=== PATIENT | female | born 1930 | race Caucasian/White ===

== ENCOUNTER → 2016-05-05 | Outpatient (CLI) | payer MEDICARE ==
[~2016-05-05] MED LIST: AC325T PO; AC500T PO; ACDPT PO; AMOX-355 PO; ASP325T PO; ASP81CT PO; ASP81TEC PO; BACL10TA PO; CARV12.52 PO; CARV6.252 PO; CHOL50003 PO; CLCX200C PO; CLOP75TA PO; DIPH25TA82 PO; DOCU100T7 PO; ENAL2.5T PO; ENXP40I.4 SC; ESTR0.5T PO; HDR2T PO; HYDR200T46 PO; ISM30TCR PO; LIDOCAINE 2% VISCOUS 15 ML UDC ONE; MEDR2.5T6 PO; MULT1CAP27 PO; NITR0.3T6 SL; NITR100C3 PO; NORE5TAB5 PO; OLME1TAB25 PO; OMEP20CA6 PO; OMG1KC PO; OXYB5SYR2 PO; PNT40TEC PO; PRAV80TA2 PO; SIMV40TA2 PO; SPIR25TA3 PO; TICA90TA PO; VNL37.5T PO; [UNRECOGNIZED DRUG - OTHER] PO; [UNRECOGNIZED DRUG - OTHER] PO
--- OUTSIDE RECORDS SUMMARY | 2016-05-05 08:46 | XMS REPORT | Continuity of Care Document ---
Author Author [facility] Organization [facility] Address Unknown Phone Unavailable Care Team Providers Care Machine Bender Name Role Phone Alf Clarke PCP [phone] Source Comments Some departments are not documenting in the electronic medical record. If you do not see the information that you expected, contact Release of Information in the Health Information Management department at [phone] for further assistance in locating additional records.[facility] Active Allergies and Adverse Reactions Allergen Noted Date Severity Reactions Comments Codeine 10/01/2010 NAUSEA AND VOMITING Tolerates hydromorphone and oxycodone Demerol (Pf) 10/01/2010 NAUSEA AND VOMITING Fentanyl Citrate (Pf) 10/01/2010 NAUSEA AND VOMITING Morphine 10/01/2010 NAUSEA AND VOMITING Current Medications Prescription Sig. Disp. Refills Start End Date Status Date diphenhydrAMINE Take 25 mg by mouth at Active (BENADRYL) 25 mg PO bedtime as needed. capsule docusate (COLACE) 100 mg Take 200 mg by mouth Active PO capsule twice daily as needed. carvedilol (COREG) 6.25 Take 1 Tab by mouth twice 180 Tab 3 10/10/19 Active mg PO tablet daily with meals. Hold 11 for SBP <100. simvastatin (ZOCOR) 40 mg Take 1 Tab by mouth at 10/10/19 Active PO tablet bedtime daily. 11 cyclobenzaprine Take 0.5 Tabs by mouth 60 Tab 10/10/19 Active (FLEXERIL) 10 mg PO three times daily as 11 tablet needed. celecoxib (CELEBREX) 200 Take 200 mg by mouth Active mg capsule twice daily. aspirin EC 81 mg tablet Take 81 mg by mouth Active daily. isosorbide mononitrate SR Take 30 mg by mouth every Active (IMDUR) 30 mg tablet morning. nitroglycerin (NITROSTAT) Place 0.4 mg under tongue Active 0.4 mg tablet every 5 minutes as needed. fish oil /omega-3 fatty Take 1 Cap by mouth three Active acids (SEA-OMEGA) times daily. 340/1000 mg capsule hydroxychloroquine Take 200 mg by mouth Active (PLAQUENIL) 200 mg tablet twice daily. enalapril (VASOTEC) 2.5 Take 5 mg by mouth twice Active mg tablet daily. pantoprazole DR Take 40 mg by mouth Active (PROTONIX) 40 mg tablet daily. ticagrelor (BRILINTA) 90 Take 90 mg by mouth twice Active mg daily. vitamins, multiple Cap Take 1 Cap by mouth Active daily. cholecalciferol (Vitamin Take 1,000 Units by mouth Active D3) (VITAMIN D-3) 1,000 daily. units tablet acetaminophen (TYLENOL) Take 500 mg by mouth Active 500 mg tablet every 6 hours as needed. oxyCODONE (ROXICODONE) 5 Take 1-2 Tabs by mouth 30 Tab 0 12/14/19 Active mg tablet every 4 hours as needed 12 for Pain. enoxaparin (LOVENOX) 40 Inject 0.4 mL into 28 Syringe 0 12/14/19 Active mg injection syringe area(s) as directed 12 daily. venlafaxine XR (EFFEXOR Take 1 Cap by mouth 30 Cap 6 01/25/20 Active XR) 37.5 mg capsule daily. 12 Active Problems Problem Noted Date Endometrial cancer (HCC) 12/14/2011 Chronic systolic congestive heart failure (HCC) 10/08/2010 Recent myocardial infarction 10/08/2010 Personal history of CABG (coronary artery bypass graft) 10/08/2010 Hyponatremia 10/07/2010 Necrosis (HCC) 10/05/2010 Crush injury 10/05/2010 Immunizations Name Dates Previously Given Next Due Tdap Vaccine 10/02/2010 Social History Tobacco Use Types Packs/Day Years Used Date Never Smoker Smokeless Tobacco: Never Used Alcohol Use Drinks/Week oz/Week Comments No Last Filed Vital Signs Vital Sign Reading Time Taken Blood Pressure 151/85 08/08/2012 2:53 PM CDT Pulse 90 08/08/2012 2:53 PM CDT Temperature 36.9 C (98.4 F) 08/08/2012 2:53 PM CDT Respiratory Rate - - Height 1.549 m (5' 1") 08/08/2012 2:53 PM CDT Weight 62.687 kg (138 lb 3.2 oz) 08/08/2012 2:53 PM CDT Body Mass Index 26.13 08/08/2012 2:53 PM CDT Oxygen Saturation 98% 12/28/2011 1:00 PM CDT Plan of Care Health Maintenance Due Date Last Done Comments Physical (Comprehensive) 1937 Exam Shingles Vaccine 1991 Osteoporosis Screening 1996 Prevnar/Pneumovax (#1) 1996 Influenza Vaccine 12/25/2015 Tetanus Vaccine 10/02/2020 10/02/2010 Pertussis Vaccine Completed 10/02/2010 Results from Last 3 Months Not on file
--- NOTE | 2016-05-06 07:49 | ECHOCARDIOGRAPHY REPORT ---
PROCEDURE PHYSICIAN: CORY GILES DATE OF PROCEDURE: 05/05/2016 TWO DIMENSIONAL ECHOCARDIOGRAM REPORT PRIMARY PHYSICIAN: OTHER PHYSICIAN: REFERRING PHYSICIAN: Dr. Alf Clarke ORDERING PHYSICIAN: INDICATION FOR THE PROCEDURE: MEASUREMENTS DERIVED VALUES LV DIAMETER (LAX) NORMALS NORMALS Diastolic 4.3 (3.6-5.2) Eject. Fract. 40% (60%+/-6%) Systolic (2.3-3.9) Diastolic Vol. % Shortening (0.22-0.42) Systolic Vol. Aortic Root IVS THICKNESS Diastolic 1.1 (0.6-1.1) LVPW THICKNESS Diastolic 1.1 (0.6-1.1) LA DIAMETER Systolic 4.7 (2.1-3.7) FINDINGS: 1. Technically difficult study. 2. The left ventricle is slightly prominent with mild left ventricular hypertrophy. Endocardium was not well visualized in all segments. Hypokinesia was noticeable in the anterior wall and anterior septum with reduction in systolic function. Estimated ejection fraction 40%. 3. The left atrium is dilated. No clot or thrombus were seen within the left atrium. 4. The right atrium and right ventricle are prominent. No clot or thrombus were seen within the right side. 5. Mitral valve evaluation showed myxomatous degeneration of the mitral leaflet with moderate mitral regurgitation noted by color Doppler flow. No mitral valve prolapse. No mitral valve stenosis. 6. Aortic valve is heavily calcified. There is no significant aortic valve stenosis noted, moderate aortic regurgitation noted by color Doppler flow. 7. Tricuspid valve is normal in morphology with mild tricuspid regurgitation noted by color Doppler flow. Doppler across tricuspid valve estimated pulmonary artery pressure of 34+ right atrial pressure. 8. Pulmonic valve is functioning normally. 9. No pericardial effusion. IN CONCLUSION: 1. Mild left ventricular hypertrophy. Endocardium was not well visualized in all segments. Hypokinesia was noted involving the anterior wall and anterior septum. Systolic function is reduced. Estimated ejection fraction 40%. 2. Left atrial dilatation with prominent right heart chambers. 3. Heavily calcified aortic valve with no significant aortic stenosis, moderate aortic regurgitation. 4. 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 5. Estimated pulmonary artery pressure of 40 to 45 mmHg. Job ID: [id number] Dictated Date: 05/05/2016 15:39:41 Cut Plug Packer Date: 05/06/2016 07:45:23 / ladarius
== END ==
LOC: CARD 08:43
PROVIDERS: ATTEND Internal Medicine Cardiovascular Disease
DX: I25.10 Atherosclerotic heart disease of native coronary artery without angina pectoris (principal); I65.23 Occlusion and stenosis of bilateral carotid arteries; I10 Essential (primary) hypertension; I21.3 ST elevation (STEMI) myocardial infarction of unspecified site; E78.2 Mixed hyperlipidemia
CPT/HCPCS: 93306

== ENCOUNTER → 2016-05-19 | Outpatient (CLI) | payer MEDICARE ==
[~2016-05-19] VITALS: Ht 154.9 cm; Wt 63.0 kg
[~2016-05-19] MED LIST changes: +CATHETER FLUSH 10 ML SYR IV PRN; -LIDOCAINE 2% VISCOUS 15 ML UDC ONE; +REGADENOSON 0.4 MG/5 ML SYR (LEXISCAN) IV ONE
--- OUTSIDE RECORDS SUMMARY | 2016-05-19 07:43 | XMS REPORT | Continuity of Care Document ---
Author Author [facility] Organization [facility] Address Unknown Phone Unavailable Care Team Providers Care Iridologist Name Role Phone Alf Clarke PCP [phone] Source Comments Some departments are not documenting in the electronic medical record. If you do not see the information that you expected, contact Release of Information in the Health Information Management department at [phone] for further assistance in locating additional records.[facility] Active Allergies and Adverse Reactions Allergen Noted [...]
[2016-05-19 09:19] VITALS: BP 146/60
--- NOTE | 2016-05-20 08:02 | STRESS TEST ---
PROCEDURE PHYSICIAN: CORY GILES DATE OF PROCEDURE: 05/19/2016 LEXISCAN MYOVIEW STRESS TEST REPORT: REFERRING PHYSICIAN: Dr. Alf lCarke BASELINE HEART RATE: 65 BASELINE BLOOD PRESSURE: 139/62 BASELINE EKG: Sinus rhythm with no ischemic changes. IN SUMMARY: The patient was injected with 10.44 mCi of technetium 99 Myoview and the resting images were obtained. Then the patient received 0.4 mg of Lexiscan followed by 30.5 mCi of technetium 99 Myoview. Throughout the test, there were no EKG changes. The resting and stress images were reviewed and compared in the short axis, horizontal long axis, and vertical long axis views. Review of the images showed breast attenuation. There is reversible ischemia involving the basal to mid anterior wall and anterior septum. SSS is 8, SDS 7, TID value 0.92. On the gated images, the left ventricle appeared to be prominent with diffuse left ventricular hypokinesia. Calculated ejection fraction 33%. IN CONCLUSION: 1. The patient tolerated Lexiscan well. 2. Breast attenuation with mild ischemia involving the basal to mid anterior wall and anterior septum. 3. Slightly prominent left ventricle with diffuse left ventricular hypokinesia. Calculated ejection fraction 33%. Job ID: [id number] Dictated Date: 05/19/2016 18:58:33 Customer Service Professional Date: 05/20/2016 07:55:22 / ladarius
== END ==
LOC: CARD 07:39
PROVIDERS: ATTEND Internal Medicine Cardiovascular Disease
DX: I25.10 Atherosclerotic heart disease of native coronary artery without angina pectoris (principal); I65.23 Occlusion and stenosis of bilateral carotid arteries; I10 Essential (primary) hypertension; I21.3 ST elevation (STEMI) myocardial infarction of unspecified site; E78.2 Mixed hyperlipidemia
CPT/HCPCS: 78452; 93017

== ENCOUNTER 2016-12-01 07:26 | Day surgery (SDC) | payer MEDICARE ==
[2016-12-01] VITALS (11 sets, daily range): BP systolic 135–178; BP diastolic 62–77
[~2016-12-01] VITALS: Ht 154.9 cm; Wt 59.0 kg
[~2016-12-01 07:26] MED LIST changes: -CATHETER FLUSH 10 ML SYR IV PRN; +HEParin (CATH LAB) 2,000 ML IV ONE; +NS IV 1000 ML 1,000 ML ONE; -REGADENOSON 0.4 MG/5 ML SYR (LEXISCAN) IV ONE
[2016-12-01] MEDS ORDERED: NS IV 1000 ML 1,000 ML IV SCH ×2 (07:29→10:42)
--- OUTSIDE RECORDS SUMMARY | 2016-12-01 07:29 | XMS REPORT | Clinical Summary ---
Author Author [facility] Organization [facility] Address Unknown Phone Unavailable Care Team Providers Care Finance Specialist Name Role Phone PCP Unavailable Source Comments Some departments are not documenting in the electronic medical record. If you do not see the information that you expected, contact Release of Information in the Health Information Management department at [phone] for further assistance in locating additional records.[facility] Allergies Active Allergy Reactions Severity Noted Date Comments Codeine NAUSEA AND VOMITING 10/01/2010 Tolerates hydromorphone and oxycodone Meperidine (Pf) NAUSEA AND VOMITING 10/01/2010 Fentanyl Citrate (Pf) NAUSEA AND VOMITING 10/01/2010 Morphine NAUSEA AND VOMITING 10/01/2010 Current Medications Prescription Sig. Disp. Refills Start [...] Cap 6 01/25/20 Active XR) 37.5 mg daily. 12 capsuleIndications: Endometrial cancer (HCC) Active Problems Problem Noted Date Endometrial cancer [...] Used Alcohol Use Drinks/Week oz/Week Comments No Sex Assigned at Date Recorded Not on file Last Filed Vital Signs Vital Sign Reading Time Taken Blood Pressure 151/85 08/08/2012 2:53 PM CDT Pulse 90 08/08/2012 2:53 PM CDT Temperature 36.9 C (98.4 F) 08/08/2012 2:53 PM CDT Respiratory Rate - - Oxygen Saturation 98% 12/28/2011 1:00 PM CDT Inhaled Oxygen - - Concentration Weight 62.7 kg (138 lb 3.2 oz) 08/08/2012 2:53 PM CDT Height 154.9 cm (5' 1") 08/08/2012 2:53 PM CDT Body Mass Index 26.11 08/08/2012 2:53 PM CDT Plan of Treatment Health Maintenance Due Date Last Done Comments PHYSICAL (COMPREHENSIVE) 1937 EXAM SHINGLES VACCINE 1991 OSTEOPOROSIS SCREENING 1996 PREVNAR/PNEUMOVAX (#1) 1996 INFLUENZA VACCINE 12/24/2016 TETANUS VACCINE 10/02/2020 10/02/2010 PERTUSSIS VACCINE Completed 10/02/2010 Results Not on filefrom Last 3 Months
[2016-12-01 08:15] LABS: MEAN PLATELET VOLUME 10.1 FL (7.4-10.4); RED BLOOD COUNT 4.46 10^6/uL (4.35-5.85); RED CELL DISTRIBUTION WIDTH 14.7 % (10.0-14.5); WHITE BLOOD COUNT 8.9 10^3/uL (4.3-11.0)
[2016-12-01 08:17] LABS: BILIRUBIN,URINE NEGATIVE (NEGATIVE); KETONES,URINE NEGATIVE (NEGATIVE); LEUKOCYTE ESTERASE ,URINE 1+ (NEGATIVE); NITRITE,URINE NEGATIVE (NEGATIVE); PH,URINE 7 (5-9); PROTEIN,URINE 2+ (NEGATIVE); UROBILINOGEN,URINE NORMAL (NORMAL)
--- NOTE | 2016-12-01 08:18 | Diagnostic Imaging Report ---
Portable upright radiograph of the chest. INDICATION: Abnormal stress test. FINDINGS: The lungs are hyperinflated with minimal pulmonary vascular congestion. The heart size is enlarged. No effusion or pneumothorax. The mediastinum and vahe appear unremarkable. Sternotomy wires and post-kyphoplasty change in the lower thoracic spine seen. IMPRESSION: Cardiomegaly with minimal vascular congestion. Dictated by: Dictated on workstation # [id number]
--- NOTE | 2016-12-01 08:22 | Cardiac Procedure Note-CS/ASA ---
Pre-Procedure Note Pre-Op Procedure Note H&P Reviewed The H&P was reviewed, patient examined and no changes noted. Date H&P Reviewed: Dec 01, 2016 Time H&P Reviewed: 08:22 Conscious Sedation Pre-Proced Time Reviewed: 08:22 ASA Class: 3 Airway Mallampati Classification: (marshall appropriate class) I. II. III, IV Lungs Heart ASA score ASA 1: a normal healthy patient ASA 2: a patient with a mild systemic disease (mid diabetes, controlled hypertension, obesity x ASA 3: a patient with a severe systemic disease that limits activity (angina , COPD, prior Myocardial infarction) ASA 4: a patient with an incapacitating disease that is a constant threat to life (CHF, renal failure) ASA 5: a moribund patient not expected to survive 24 hrs. (ruptured aneurysm) ASA 6: a declared brain patient whose organs are being harvested. For emergent operations, add the letter E after the classification Grade 3 Sedation Plan: Analgesia, Amnesia, Plan communicated to team members, Discussed options with patient/fam, Discussed risks with patient/fam Note The patient is an appropriate candidate to undergo the planned procedure, sedation, and anesthesia. The patient immediately re-assessed prior to indication. CORY GILES MD Dec 01, 2016 08:22
[2016-12-01] MEDS ORDERED: NITR0.4T SL (08:23)
[2016-12-01] MEDS ORDERED: VIT1CAPS44 PO (08:23)
[2016-12-01] MEDS ORDERED: OMEP40CA36 PO (08:23)
[2016-12-01] MEDS ORDERED: FURO40TA4 PO (08:23)
[2016-12-01] MEDS ORDERED: MULT-1021 PO (08:23)
[2016-12-01] MEDS ORDERED: ENAL5TAB PO (08:23)
[2016-12-01] MEDS ORDERED: NAPR220T66 PO (08:23)
[2016-12-01] MEDS ORDERED: MELO15TA39 PO (08:23)
[2016-12-01] MEDS ORDERED: CEFU250T80 PO (08:23)
[2016-12-01] MEDS ORDERED: CHOL10007 PO (08:23)
[2016-12-01 08:24] LABS: INR 1.1 (0.8-1.4); PROTHROMBIN TIME PATIENT 14.2 SEC (12.2-14.7)
[2016-12-01 08:25] LABS: WBC,URINE RARE /HPF
[2016-12-01] MEDS ORDERED: fentaNYL INJECTION 100 MCG/2 ML AMP ONE (08:33)
[2016-12-01] MEDS ORDERED: MIDAZOLAM 5 MG/5 ML (VERSED) VIAL ONE (08:34)
[2016-12-01 08:35] LABS: ALBUMIN 3.8 GM/DL (3.2-4.5); BILIRUBIN,TOTAL 0.4 MG/DL (0.1-1.0); CALCIUM 9.9 MG/DL (8.5-10.1); CREATININE SERUM 0.91 MG/DL (0.60-1.30); POTASSIUM 4.3 MMOL/L (3.6-5.0); TOTAL PROTEIN 7.1 GM/DL (6.4-8.2)
--- NOTE | 2016-12-01 10:44 | Discharge Inst-Post CATH ---
Discharge Inst-CATH Post Cardiac Cath D/C Inst Follow Up/Plan Appointment with Dr. Hess's office in 2-4 weeks CARDIAC CATH DISCHARGE INSTRUCTIONS *Hold Metformin for 48 hours post heart cath. ACTIVITY * Go Home directly and rest. * Limit activity of the leg (or wrist if it was used) for 7 days including aerobics, swimming, jogging, bicycling, etc. * Restrict stair-climbing for 7 days if possible, if not, climb up with your non -cath leg, then bring together on the same step. * Avoid lifting, pushing, pulling or excessive movement of the affected extremity for 7 days. * Customary sexual activity may be resumed after 2 days-use caution not to use a position that strains or causes pain to the affected extremity. * No driving for 24 hours. * NO SMOKING. * Avoid straining for bowel movements for 7 days. * Gentle walking on level ground is allowed. * Returning to work will depend on the type of procedure and the results. Your doctor will discuss this with you. CALL YOUR DOCTOR FOR ANY OF THE FOLLOWING: *If bleeding from the puncture site occurs- Apply gentle pressure to site with clean cloth and call your doctor or EMS. * If a knot or lump forms under the skin, increases in size, or causes pain. * If bruising appears to be worsening or moving further down your leg instead of disappearing. * Temperature above 101 F. CARE OF YOUR GROIN INCISION; * Bruising or purple discoloration of the skin near the puncture site is common. * You may shower only, no bathtub bathing for 5 days. Be careful to avoid slipping as your leg may feel stiff. * If a closure device was used on your femoral artery, please see the attached guide regarding care of the device and your leg. * REMOVE the dressing from your groin the next day after your procedure in the shower. CARE OF YOUR WRIST INCISION; * Bruising or purple discoloration of the skin near the puncture site is common. * You may shower. * DO NOT submerge wrist. * Remove dressing in 24 hours. CORY HESS MD Dec 01, 2016 10:44
[2016-12-01] MEDS ORDERED: PATIENT MAY USE OWN MEDS, ALL PO SCH (10:45)
--- NOTE | 2016-12-01 10:50 | Cardiac Cath Report ---
Cardiac Cath Report Physician (s)/Inspector Missile (s) Physician CORY GILES MD Pre-Procedure Diagnosis Pre-Procedure Diagnosis: coronary artery disease Post-Procedure Note Procedure Start Date: Dec 01, 2016 Procedure Start Time: 10:30 Name of Procedure: left heart catheterization, vein graft angiogram, HAMILTON angiogram Findings/Procedure Note PROCEDURE NOTE: After explaining the procedure to the patient, all pros and cons were explained, all questions were answered. The patient signed the consent and then she was placed on the cardiac catheterization laboratory. PROCEDURE NOTE: The patient was placed on the cardiac catheterization laboratory. Groin was prepped SL fashion local anesthesia was used. Sheath placed in the artery. Branden right and left catheter were used to access the coronary system. Vein Grafts evaluated. HAMILTON evaluated. Branden right was advanced to the left ventricular cavity, pressure was measured At the end of the procedure the sheath was removed. Closure device Mynx used. FINDINGS: Hemodynamics LV [ 168/19, end-diastolic pressure of 19] Aorta [ 174/60 mean of 101] ANATOMY: Left Main 70 percent ostial left main stenosis that is filling the diagonal artery. Left Anterior Descending is occluded at the midportion after the origin of a moderate size diagonal artery, the HAMILTON to the mid LAD is patent with good flow distally, diagonal artery has moderate disease Left Circumflex totally occluded, known to be occluded, occluded vein graft to the circumflex system Right Coronory Artery occluded artery with patent vein graft to the right coronary artery HAMILTON patent with good flow in the LAD Vein graft to the circumflex artery is occluded Vein graft to the right coronary artery is patent with good flow distally CONCLUSION: occluded vein graft to the circumflex artery with occluded iqugmiut circumflex artery, no collaterals were noted. Occluded mid LAD with patent HAMILTON to the mid LAD filling the LAD distally with good flow First diagonal artery is moderate in size with moderate disease Left main has 70 percent ostial stenosis Occluded right coronary artery with patent vein graft to the right coronary system No significant change compared to the previous study, small vessel disease. DISCUSSION AND RECOMMENDATION: Medical therapy is recommended Anesthesia Type: Conscious Sedation Estimated blood loss (mL): 25 ml Contrast Amount: 67 ml Total Radiation Dose: 203 mGy Post-Procedure Diagnosis Post-operative diagnosis: Coronary artery disease Hypertension Hyperlipidemia CORY GILES MD Dec 01, 2016 10:50
--- NOTE | 2016-12-01 10:52 | Clinic Account Progress/Dx ---
Clinic Account Progress/Dx DIAGNOSIS: Date Seen by Provider: Dec 01, 2016 Time Seen by Provider: 10:52 Diagnosis Coronary artery disease Hypertension Hyperlipidemia CORY GILES MD Dec 01, 2016 10:52
== END 2016-12-01 15:15 | disposition home or self-care (01) ==
LOC: CATH 07:26 → SURG 11:04 → CATH 15:15
PROVIDERS: ATTEND Internal Medicine Cardiovascular Disease
DX: I25.10 Atherosclerotic heart disease of native coronary artery without angina pectoris (principal); I25.82 Chronic total occlusion of coronary artery; T82.857D Stenosis of other cardiac prosthetic devices, implants and grafts, subsequent encounter; E78.2 Mixed hyperlipidemia; I11.0 Hypertensive heart disease with heart failure; Z79.899 Other long term (current) drug therapy
CPT/HCPCS: 36415; 71010; 80053; 81000; 85027; 85610; 85730; 87081; 93005; 93459

== ENCOUNTER 2017-04-02 10:16 | Emergency (ER) | payer MEDICARE ==
[~2017-04-02] VITALS: Ht 160 cm; Wt 63.5 kg
[~2017-04-02 10:16] MED LIST changes: +CEFU250T80 PO; +CHOL10007 PO; +ENAL5TAB PO; +FURO40TA4 PO; -HEParin (CATH LAB) 2,000 ML IV ONE; +MELO15TA39 PO; +MULT-1021 PO; +NAPR220T66 PO; +NITR0.4T SL; -NS IV 1000 ML 1,000 ML ONE; +OMEP40CA36 PO; +VIT1CAPS44 PO
--- NOTE | 2017-04-02 11:32 | Diagnostic Imaging Report ---
EXAM: CHEST 1 VIEW, AP/PA ONLY INDICATION: Fall. Chest pain. COMPARISON: Chest radiograph 12/01/2016. FINDINGS: Cardiomegaly and pulmonary venous congestion, similar to the prior exam. Sternotomy with mediastinal clips and markers. No new focal pulmonary opacity, pleural effusion or pneumothorax. Osseous structures appear intact. Postoperative findings in the right shoulder. Vertebroplasty of a lower thoracic vertebral body. Cholecystectomy clips. IMPRESSION: Cardiomegaly with mild pulmonary venous congestion is stable. No acute cardiopulmonary findings. Dictated by: Dictated on workstation # [id number]
--- NOTE | 2017-04-02 11:35 | Diagnostic Imaging Report ---
EXAM: RIBS, LEFT 2-3 VIEWS INDICATION: Fall. Chest pain. COMPARISON: Chest radiograph also performed today. FINDINGS: Mild angulation of the distal left seventh rib may represent an age-indeterminate fracture. No other findings suspicious for a left rib fracture. Vertebroplasty changes within the L1 compression fracture. Cardiomegaly. Sternotomy with mediastinal clips and markers. Degenerative changes in the left shoulder. IMPRESSION: Mild angulation of the distal left seventh rib may represent age-indeterminate fracture. No other findings suspicious for left rib fracture. Dictated by: Dictated on workstation # [id number]
--- NOTE | 2017-04-02 11:35 | Diagnostic Imaging Report ---
EXAM: PELVIS WITH LEFT HIP 2-3 VIEWS INDICATION: Fall. Left hip pain. COMPARISON: None FINDINGS: Moderately angulated and foreshortened left subcapital hip fracture. No other acute fractures are identified. Moderate degenerative changes in the right hip and both SI joints. Chronic appearing fracture deformities of the right superior and inferior pubic rami. IMPRESSION: Moderately angulated and foreshortened left subcapital hip fracture. Dictated by: Dictated on workstation # [id number]
[2017-04-02 11:53] LABS: BASOPHILS % (AUTO) 0 % (0-10); EOSINOPHILS # (AUTO) 0.1 10^3/uL (0.0-0.3); EOSINOPHILS % (AUTO) 1 % (0-10); LYMPHOCYTES # (AUTO) 0.6 X 10^3 (1.0-4.0); LYMPHOCYTES % (AUTO) 6 % (12-44); MEAN CORPUSCULAR HEMOGLOBIN 29 PG (25-34); MEAN CORPUSCULAR HGB CONC 32 G/DL (32-36); MEAN CORPUSCULAR VOLUME 92 FL (80-99); MONOCYTES # (AUTO) 0.6 X 10^3 (0.0-1.0); MONOCYTES % (AUTO) 6 % (0-12); NEUTROPHILS # (AUTO) 9.3 X 10^3 (1.8-7.8); NEUTROPHILS % (AUTO) 88 % (42-75); PLATELET COUNT 225 10^3/uL (130-400); RED BLOOD COUNT 3.81 10^6/uL (4.35-5.85); RED CELL DISTRIBUTION WIDTH 15.6 % (10.0-14.5); WHITE BLOOD COUNT 10.6 10^3/uL (4.3-11.0)
[2017-04-02 11:59] LABS: INR 1.2 (0.8-1.4); PROTHROMBIN TIME PATIENT 15.1 SEC (12.2-14.7)
[2017-04-02 12:09] LABS: ALBUMIN 3.6 GM/DL (3.2-4.5); BILIRUBIN,TOTAL 0.3 MG/DL (0.1-1.0); CALCIUM 9.1 MG/DL (8.5-10.1); CREATININE SERUM 0.96 MG/DL (0.60-1.30); POTASSIUM 4.6 MMOL/L (3.6-5.0); TOTAL PROTEIN 6.5 GM/DL (6.4-8.2)
[2017-04-02 12:13] LABS: BAND NEUTROPHILS 0 %; BASOPHILS % (MANUAL) 0 %; EOSINOPHILS % (MANUAL) 1 %; LYMPHOCYTES % (MANUAL) 12 %; NEUTROPHILS % (MANUAL) 81 %
--- NOTE | 2017-04-02 13:06 | ED Fall/Injury ---
General Chief Complaint: Hip/Pelvic Problems Stated Complaint: FALL/L HIP INJ Source: patient, EMS Exam Limitations: no limitations History of Present Illness Time seen by provider: 10:50 Initial Comments This delightful 86-year-old woman presents to the emergency room with complaint of left hip pain after having a fall walking on her front door. She is not exactly sure what caused the fall but she denies any prodrome. She has pain on the left lateral chest wall and primarily in the left hip. She was unable to bear weight and arrives via EMS. She denies any injury to the head or neck or pain in those areas. Allergies and Home Medications Allergies Coded Allergies: codeine (Verified Allergy, Unknown, 12/01/16) meperidine HCl (Verified Allergy, Unknown, 12/01/16) morphine (Verified Allergy, Unknown, 12/01/16) Home Medications Aspirin 81 Mg Tabec, 81 MG PO DAILY, (Reported) Carvedilol 6.25 Mg Tablet, 6.25 MG PO BID, (Reported) Cefuroxime Axetil 250 Mg Tablet, 250 MG PO BID for 10 Days, (Reported) 10 DAY SUPPLY FILLED 11-22-16 Cholecalciferol (Vitamin D3) 1,000 Unit Capsule, 1,000 UNIT PO HS, (Reported) Diphenhydramine Hcl 25 Mg Tablet, 25 MG PO HS, (Reported) Enalapril Maleate 5 Mg Tablet, 5 MG PO BID, (Reported) Furosemide 40 Mg Tablet, 40 MG PO DAILY, (Reported) Hydroxychloroquine Sulfate 200 Mg Tab, 200 MG PO BID, (Reported) Isosorbide Mononitrate 30 Mg Tab, 30 MG PO DAILY, (Reported) Meloxicam 15 Mg Tablet, 15 MG PO DAILY, (Reported) Multivits-Min/Iron/FA/Lutein 1 Each Tablet, 1 TAB PO DAILY, (Reported) Naproxen Sodium 220 Mg Tablet, 220 MG PO BID, (Reported) Nitroglycerin 0.4 Mg Tab.subl, 0.4 MG SL UD PRN for CHEST PAIN, (Reported) [place] 3 Polyunsat Fatty Acids 1,000 Mg Cap, 1,000 MG PO BID, (Reported) Omeprazole 40 Mg Capsule.dr, 40 MG PO BID, (Reported) Simvastatin 40 Mg Tablet, 40 MG PO DAILY, (Reported) Vit C/E/Zn/Coppr/Lutein/Zeaxan 1 Each Capsule, 1 CAP PO BID, (Reported) Constitutional: no symptoms reported Eyes: No Symptoms Reported Ears, Nose, Mouth, Throat: no symptoms reported Respiratory: no symptoms reported Cardiovascular: no symptoms reported Gastrointestinal: no symptoms reported Genitourinary: no symptoms reported : No Musculoskeletal: see HPI Skin: no symptoms reported Psychiatric/Neurological: No Symptoms Reported Past Mblblsk-Pyhcql-Clfrot Hx Patient Social History Recent Foreign Travel: No Contact w/Someone Who Travel: No Recent Infectious Disease Expo: No Recent Hopitalizations: Yes (2009 BACK SURGERY) Immunizations Up To Date Date of Pneumonia Vaccine: Jan 24, 2012 Date of Influenza Vaccine: Jan 24, 2013 Seasonal Allergies Seasonal Allergies: No Surgeries History of Surgeries: Yes Surgeries: Amputation, CABG, 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, BKA) Respiratory History of Respiratory Disorde: No Cardiovascular History of Cardiac Disorders: Yes (CABG, STENT) Cardiac Disorders: Coronary Artery Disease Neurological History of Neurological Disord: No Reproductive System Hx Reproductive Disorders: Yes (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) Sexually Transmitted Disease: No HIV/AIDS: No Female Reproductive Disorders: Denies Genitourinary History of Genitourinary Disor: No Gastrointestinal History of Gastrointestinal Di: Yes Gastrointestinal Disorders: Gastroesophageal Reflux Musculoskeletal 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 Endocrine History of Endocrine Disorders: No HEENT History of HEENT Disorders: No Cancer History of Cancer: Yes Cancer: Uterine Psychosocial History of Psychiatric Problem: No Integumentary History of Skin or Integumenta: No Blood Transfusions History of Blood Disorders: No Adverse Reaction to a Blood Tr: No Physical Exam Vital Signs Vital Sign - Last 12Hours 04/02/17 10:25 Temp 98.2 Pulse 68 Resp 20 B/P (MAP) 138/98 (111) Capillary Refill : NONE General Appearance: WD/WN, no apparent distress HEENT: PERRL/EOMI, normal ENT inspection Neck: normal inspection Cardiovascular: regular rate, rhythm, no edema, no murmur Respiratory: lungs clear, normal breath sounds, no respiratory distress, no accessory muscle use, other (left lower lateral chest tender to palpation) Gastrointestinal: normal bowel sounds, non tender, soft Extremities: pelvis stable, other (tenderness over the left lateral hip. Pain with external rotation of the left leg. Prosthetic below the left knee) Neurologic/Psychiatric: vegetable scullion II-XII nml as tested, no motor/sensory deficits, alert, normal mood/affect, oriented x 3 Skin: normal color, warm/dry [place]ello Coma Score Best Eye Response: (4) Open Spontaneously Best Verbal Response: (5) Oriented Best Motor Response: (6) Obeys Commands [place] Total: 15 Progress/Results/Core Measures Results/Orders Lab Results Laboratory Tests Test 04/02/17 11:40 Range/Units White Blood Count 10.6 4.3-11.0 10^3/uL Red Blood Count 3.81 L 4.35-5.85 10^6/uL Hemoglobin 11.1 L 11.5-16.0 G/DL Hematocrit 35 35-52 % Mean Corpuscular Volume 92 80-99 FL Mean Corpuscular Hemoglobin 29 25-34 PG Mean Corpuscular Hemoglobin Concent 32 32-36 G/DL Red Cell Distribution Width 15.6 H 10.0-14.5 % Platelet Count 225 130-400 10^3/uL Mean Platelet Volume 10.0 7.4-10.4 FL Neutrophils (%) (Auto) 88 H 42-75 % Lymphocytes (%) (Auto) 6 L 12-44 % Monocytes (%) (Auto) 6 0-12 % Eosinophils (%) (Auto) 1 0-10 % Basophils (%) (Auto) 0 0-10 % Neutrophils # (Auto) 9.3 H 1.8-7.8 X 10^3 Lymphocytes # (Auto) 0.6 L 1.0-4.0 X 10^3 Monocytes # (Auto) 0.6 0.0-1.0 X 10^3 Eosinophils # (Auto) 0.1 0.0-0.3 10^3/uL Basophils # (Auto) 0.0 0.0-0.1 10^3/uL Neutrophils % (Manual) 81 % Lymphocytes % (Manual) 12 % Monocytes % (Manual) 6 % Eosinophils % (Manual) 1 % Basophils % (Manual) 0 % Band Neutrophils 0 % Blood Morphology Comment NORMAL Prothrombin Time 15.1 H 12.2-14.7 SEC INR Comment 1.2 0.8-1.4 Activated Partial Thromboplast Time 30 24-35 SEC Sodium Level 133 L 135-145 MMOL/L Potassium Level 4.6 3.6-5.0 MMOL/L Chloride Level 101 98-107 MMOL/L Carbon Dioxide Level 21 21-32 MMOL/L Anion Gap 11 5-14 MMOL/L Blood Urea Nitrogen 21 H 7-18 MG/DL Creatinine 0.96 0.60-1.30 MG/DL Estimat Glomerular Filtration Rate 55 BUN/Creatinine Ratio 22 Glucose Level 129 H 70-105 MG/DL Calcium Level 9.1 8.5-10.1 MG/DL Total Bilirubin 0.3 0.1-1.0 MG/DL Aspartate Amino Transf (AST/SGOT) 25 5-34 U/L Alanine Aminotransferase (ALT/SGPT) 28 0-55 U/L Alkaline Phosphatase 118 40-136 U/L Total Protein 6.5 6.4-8.2 GM/DL Albumin 3.6 3.2-4.5 GM/DL My Orders Orders - KINJAL EL MD Chest 1 View, Ap/Pa Only (04/02/17 10:59) Ribs, Left 2-3 Views (04/02/17 10:59) Pelvis With Left Hip 2-3 Views (04/02/17 10:59) Cbc With Automated Diff (04/02/17 11:47) Comprehensive Metabolic Panel (04/02/17 11:47) Protime With Inr (04/02/17 11:47) Partial Thromboplastin Time (04/02/17 11:47) Ua Culture If Indicated (04/02/17 11:47) Manual Differential (04/02/17 11:40) Vital Signs/I&O Vital Sign - Last 12Hours 04/02/17 10:25 Temp 98.2 Pulse 68 Resp 20 B/P (MAP) 138/98 (111) Blood Pressure Mean: 111 Progress Note #1: Progress Note Patient was seen and evaluated for left lateral chest pain and left hip pain. She was found to have a left seventh rib fracture of unknown chronicity. There was also a femoral neck fracture on the left. Patient expressed a strong preference to be transferred to [place] where her specialty care teams are located. She declined any pain medications. She did have some mild hypoxia during her ER stay and was started on nasal cannula. Transfer of this patient was accepted by Dr. Hi in the [place] ER. Progress Note #2: Time: 13:23 Progress Note EMSs here to transport patient. Patient will be given Dilaudid 0.25 mg IV prior to transfer to help with pain in route. Diagnostic Imaging Diagonstic Imaging: Xray Plain Films/CT/US/NM/MRI: chest Comments Chest x-ray viewed by me and report reviewed. See report below: NAME: SYLVIA PARKER [facility] REC#: [id number] PT STATUS: REG ER : 1930 PHYSICIAN: IKNJAL EL MD ADMIT DATE: 04/02/17/ER Draft Date of Exam:04/02/17 CHEST 1 VIEW, AP/PA ONLY EXAM: CHEST 1 VIEW, AP/PA ONLY INDICATION: Fall. Chest pain. COMPARISON: Chest radiograph 12/01/2016. FINDINGS: Cardiomegaly and pulmonary venous congestion, similar to the prior exam. Sternotomy with mediastinal clips and markers. No new focal pulmonary opacity, pleural effusion or pneumothorax. Osseous structures appear intact. Postoperative findings in the right shoulder. Vertebroplasty of a lower thoracic vertebral body. Cholecystectomy clips. IMPRESSION: Cardiomegaly with mild pulmonary venous congestion is stable. No acute cardiopulmonary findings. Dictated on workstation # [id number] Dict: 04/02/17 1123 Trans: 04/02/17 1132 [facility] [id number] Interpreted by: SHA VEGA MD Diagonstic Imaging: Xray Plain Films/CT/US/NM/MRI: other (left ribs) Comments Left rib x-ray viewed by me and report reviewed. See report below: NAME: SYLVIA PARKER MED REC#: [id number] PT STATUS: REG ER : 1930 PHYSICIAN: KINJAL EL MD ADMIT DATE: 04/02/17/ER Draft Date of Exam:04/02/17 RIBS, LEFT 2-3 VIEWS EXAM: RIBS, LEFT 2-3 VIEWS INDICATION: Fall. Chest pain. COMPARISON: Chest radiograph also performed today. FINDINGS: Mild angulation of the distal left seventh rib may represent an age-indeterminate fracture. No other findings suspicious for a left rib fracture. Vertebroplasty changes within the L1 compression fracture. Cardiomegaly. Sternotomy with mediastinal clips and markers. Degenerative changes in the left shoulder. IMPRESSION: Mild angulation of the distal left seventh rib may represent age-indeterminate fracture. No other findings suspicious for left rib fracture. Dictated on workstation # [id number] Dict: 04/02/17 1126 Trans: 04/02/17 1134 [facility] [id number] Interpreted by: SHA VEGA MD Diagonstic Imaging: Xray Plain Films/CT/US/NM/MRI: pelvis, hip Comments X-ray of the left hip and pelvis viewed by me and report reviewed. See report below: NAME: SYLVIA PARKER [facility] REC#: [id number] PT STATUS: REG ER : 1930 PHYSICIAN: KINJAL EL MD ADMIT DATE: 04/02/17/ER Draft Date of Exam:04/02/17 PELVIS WITH LEFT HIP 2-3 VIEWS EXAM: PELVIS WITH LEFT HIP 2-3 VIEWS INDICATION: Fall. Left hip pain. COMPARISON: None FINDINGS: Moderately angulated and foreshortened left subcapital hip fracture. No other acute fractures are identified. Moderate degenerative changes in the right hip and both SI joints. Chronic appearing fracture deformities of the right superior and inferior pubic rami. IMPRESSION: Moderately angulated and foreshortened left subcapital hip fracture. Dictated on workstation # [id number] Dict: 04/02/17 1129 Trans: 04/02/17 1135 [facility] [id number] Interpreted by: SHA VEGA MD Departure Impression Impression: Primary Impression: Subcapital fracture of left hip Qualified Codes: S72.012A - Unspecified intracapsular fracture of left femur, initial encounter for closed fracture Additional Impressions: Left rib fracture Qualified Codes: S22.32XA - Fracture of one rib, left side, initial encounter for closed fracture Fall on same level Qualified Codes: W18.30XA - Fall on same level, unspecified, initial encounter Disposition: 02 XFER SHT-TRM HOSP Condition: Stable Transfer Time Spoke to Accepting Phy: 12:22 Transfer Progress Notes Patient had a strong preference to be transferred to [place] for continuity of care with her specialty teams. I spoke with Dr. Hi in the [place] ER. He excepts patient. Transfer Facility: [facility] Method of Transfer: EMS Departure-Patient Inst. Referrals: CHARLOTTE LYON MD (PCP/Family) Primary Care Physician KINJAL EL MD Apr 02, 2017 13:06
[2017-04-02] MEDS ORDERED: HYDROmorphone (DILAUDID) 2 MG/ML VIAL IVP STA (13:22)
[2017-04-02 13:33] VITALS: BP 126/87
== END 2017-04-02 13:33 | disposition short-term general hospital (02) ==
LOC: ER 10:16 → EDUNIT# 10:16 → ER 13:33
DX: S72.092A Other fracture of head and neck of left femur, initial encounter for closed fracture (principal); S22.32XA Fracture of one rib, left side, initial encounter for closed fracture; K21.9 Gastro-esophageal reflux disease without esophagitis; I25.10 Atherosclerotic heart disease of native coronary artery without angina pectoris; Z95.5 Presence of coronary angioplasty implant and graft; Z95.1 Presence of aortocoronary bypass graft; Z79.82 Long term (current) use of aspirin; Z85.42 Personal history of malignant neoplasm of other parts of uterus; Z89.512 Acquired absence of left leg below knee; W18.30XA Fall on same level, unspecified, initial encounter; Y93.01 Activity, walking, marching and hiking
CPT/HCPCS: 36415; 71010; 71100; 80053; 85007; 85027; 85610; 85730